=== PATIENT | female | born 2000 | race African-American/Black ===

== ENCOUNTER 2021-07-23 01:57 | Emergency (ER) | payer BC, MEDICAID ==
[~2021-07-23] VITALS: Ht 170.2 cm; Wt 50.9 kg
[~2021-07-23 01:57] MED LIST: PREDNISONE20 MG PO
[2021-07-23 02:04] VITALS: TEMP 98.5
[2021-07-23 03:17] VITALS: BP 124/90; PULSE 81
== END 2021-07-23 03:17 | disposition home or self-care (01) ==
LOC: COL.ER 01:57
DX: J45.901 Unspecified asthma with (acute) exacerbation (principal); J06.9 Acute upper respiratory infection, unspecified; F17.290 Nicotine dependence, other tobacco product, uncomplicated; Z21 Asymptomatic human immunodeficiency virus [HIV] infection status; Z20.822 Contact with and (suspected) exposure to COVID-19; Z79.52 Long term (current) use of systemic steroids

== ENCOUNTER 2021-07-23 21:34 | Emergency (ER) | payer BC, MEDICAID ==
[~2021-07-23] VITALS: Ht 167.6 cm; Wt 50.9 kg
[2021-07-23 21:38] VITALS: TEMP 98.6
[2021-07-23 22:28] LABS: BASO % 0.2 % (0.0-2.0); EOS # 0.1 K/mm3 (0.0-0.7); EOS % 1.2 % (0-4.0); GRAN % 85.4 % (42.2-75.2); HEMATOCRIT 41.5 % (35.0-45.0); HEMOGLOBIN 13.8 g/dl (12.0-15.0); LYMPH # 0.8 K/mm3 (1.2-3.4); LYMPH % 8.6 % (20.0-51.0); MEAN CELL VOLUME 77 fl (80.0-95.0); MEAN CORPUSCULAR HEMOGLOBIN 26 pg (26.0-32.0); MEAN CORPUSCULAR HGB CONC 33 g/dl (33.0-37.0); MEAN PLATELET VOLUME 9.7 fl (7.4-10.4); MONO # 0.4 K/mm3 (0.1-0.6); MONO % 4.4 % (1.7-9.3); PLATELET COUNT 318 K/mm3 (130-400); RED BLOOD COUNT 5.36 M/mm3 (4.10-5.30); REDCELL DISTRIBUTION WIDTH-CV 14.4 % (11.5-14.5)
[2021-07-23 22:49] LABS: ALBUMIN 4.5 gm/dL (3.5-5.0); CALCIUM 10.2 mg/dL (8.4-10.2); CREATININE, serum 0.78 mg/dL (0.57-1.11); POTASSIUM 3.7 mmol/L (3.5-4.5); TOTAL PROTEIN 8.7 gm/dL (6.2-8.1)
[2021-07-23 23:00] VITALS: BP 112/69; PULSE 77
[2021-07-23 23:10] LABS: BILIRUBIN,TOTAL 0.5 mg/dL (0.2-1.2)
== END 2021-07-23 23:05 | disposition home or self-care (01) ==
LOC: COL.ER 21:34
PROVIDERS: Emergency Medicine
DX: R11.10 Vomiting, unspecified (principal); R00.0 Tachycardia, unspecified; Z21 Asymptomatic human immunodeficiency virus [HIV] infection status
CPT/HCPCS: J2405; J7030

== ENCOUNTER 2021-11-07 10:09 | Emergency (ER) | payer BC, MEDICAID ==
[~2021-11-07] VITALS: Ht 167.6 cm; Wt 49.5 kg
[2021-11-07 10:17] VITALS: TEMP 99.9
[2021-11-07 11:16] LABS: BASO # 0.1 K/mm3 (0.0-0.2); BASO % 0.9 % (0.0-2.0); EOS # 0.1 K/mm3 (0.0-0.7); EOS % 1.9 % (0.0-4.0); GRAN # 3.5 K/mm3 (1.4-6.5); GRAN % 51.6 % (42.2-75.2); HEMATOCRIT 37.5 % (35.0-45.0); HEMOGLOBIN 12.3 g/dl (12.0-15.0); LYMPH # 2.6 K/mm3 (1.2-3.4); LYMPH % 37.9 % (20.0-51.0); MEAN CELL VOLUME 80 fl (80.0-95.0); MEAN CORPUSCULAR HEMOGLOBIN 26 pg (26-32); MEAN CORPUSCULAR HGB CONC 33 g/dl (33.0-37.0); MEAN PLATELET VOLUME 9.3 fl (7.4-10.4); MONO # 0.5 K/mm3 (0.1-0.6); MONO % 7.4 % (1.7-9.3); PLATELET COUNT 339 K/mm3 (130-400); RED BLOOD COUNT 4.68 M/mm3 (4.10-5.30); REDCELL DISTRIBUTION WIDTH-CV 14.3 % (11.5-14.5)
[2021-11-07 11:28] LABS: ALBUMIN 4.3 gm/dL (3.5-5.0); BILIRUBIN,TOTAL 0.5 mg/dL (0.2-1.2); CALCIUM 8.9 mg/dL (8.4-10.2); CREATININE, serum 0.77 mg/dL (0.57-1.11); POTASSIUM 3.5 mmol/L (3.5-4.5); TOTAL PROTEIN 7.3 gm/dL (6.2-8.1)
[2021-11-07 12:13] VITALS: BP 99/70; PULSE 77
== END 2021-11-07 12:13 | disposition home or self-care (01) ==
LOC: COL.ER 10:09
PROVIDERS: Personal Emergency Response Attendant
DX: O03.9 Complete or unspecified spontaneous abortion without complication (principal); O98.711 Human immunodeficiency virus [HIV] disease complicating pregnancy, first trimester; Z21 Asymptomatic human immunodeficiency virus [HIV] infection status; Z3A.01 Less than 8 weeks gestation of pregnancy

== ENCOUNTER 2023-08-14 13:37 | Emergency (ER) | payer BC, MEDICAID ==
[~2023-08-14] VITALS: Ht 165.1 cm; Wt 50.9 kg
[2023-08-14 13:44] VITALS: TEMP 98.2
[2023-08-14 14:04] LABS: BASO # 0.1 K/mm3 (0.0-0.2); BASO % 0.7 % (0.0-2.0); EOS # 0.4 K/mm3 (0.0-0.7); EOS % 4.5 % (0.0-4.0); GRAN # 5.5 K/mm3 (1.4-6.5); GRAN % 58.4 % (42.2-75.2); HEMATOCRIT 37.1 % (37.0-47.0); HEMOGLOBIN 12.4 g/dl (12.5-16.0); LYMPH # 2.8 K/mm3 (1.2-3.4); MEAN CELL VOLUME 80 fl (80.0-100.0); MEAN CORPUSCULAR HEMOGLOBIN 27 pg (27-31); MEAN CORPUSCULAR HGB CONC 33 g/dl (33.0-37.0); MEAN PLATELET VOLUME 8.6 fl (7.4-10.4); MONO # 0.6 K/mm3 (0.1-0.6); MONO % 6.2 % (1.7-9.3); PLATELET COUNT 369 K/mm3 (130-400); RED BLOOD COUNT 4.66 M/mm3 (4.10-5.30); REDCELL DISTRIBUTION WIDTH-CV 13.6 % (11.5-14.5)
[2023-08-14 14:24] LABS: ALANINE AMINOTRANSFERASE 17 U/L (0-55); ALBUMIN 3.8 gm/dL (3.5-5.0); ALKALINE PHOSPHATASE 57 U/L (40-150); ANION GAP 13 mmol/L (7-16); AST,SGOT 16 U/L (5-34); BILIRUBIN,TOTAL 0.4 mg/dL (0.2-1.2); BLOOD UREA NITROGEN 14 mg/dL (7-19); CALCIUM 8.9 mg/dL (8.4-10.2); CARBON DIOXIDE 19 mmol/L (22-29); CHLORIDE 108 mmol/L (98-107); CREATININE, serum 0.81 mg/dL (0.57-1.11); GLUCOSE 85 mg/dL (70-99); POTASSIUM 3.5 mmol/L (3.5-4.5); SODIUM 140 mmol/L (136-145); TOTAL PROTEIN 7.1 gm/dL (6.2-8.1)
[2023-08-14 14:31] LABS: TROPONIN-I < 0.010 ng/mL (0.00-0.033)
[2023-08-14 14:57] VITALS: BP 92/56; PULSE 87
== END 2023-08-14 14:57 | disposition home or self-care (01) ==
LOC: COL.ER 13:37
PROVIDERS: Emergency Medicine
DX: R07.89 Other chest pain (principal)